=== PATIENT | male | born 1980 | race Caucasian/White ===

== ENCOUNTER 2022-07-07 08:28 | Outpatient (CLI) | payer OTHER, SELFPAY ==
--- NOTE | ~2022-07-07 | MR_ITS ---
EXAMINATION: MR knee LT w con DATE: 07/07/2022 10:33 INDICATION: Left knee pain TECHNIQUE: Magnetic resonance imaging (MRI) of the left knee was performed with intra-articular gadol inium contrast but without intravenous contrast. Details of the joint injection and contrast mixture have been dictated separately. Sequences included axial and sagittal PD-weighted FSE, sagittal and co el fluid sensitive FSE STIR, axial T2-weighted FS FSE, sagittal and coronal T1-weighted FSE and sa gittal T1-weighted FS FSE. COMPARISON: Radiographs dated 07/07/2022 FINDINGS: Medial compartment: Medial meniscus is normal. Tiny partial-thickness chondral ulceration versus fissure at the central w eightbearing medial femoral condyle seen on series 4, image 11. Lateral compartment: Lateral meniscus is normal. Articular cartilage is normal. Patellofemoral compartment: There is approximately 10 x 10 mm chondral ulceration at the central aspect of the trochlear groove w ith small central osteophyte at the site of the ulceration. Additional small partial thickness chondr al fissure without degenerative subchondral changes at the central aspect of the medial trochlea. Sha llow chondral fissuring also without degenerative subchondral changes at the central aspect of the pa tellar apical ridge and immediately adjacent medial side of the lateral facet. Ligaments and tendons: Anterior and posterior cruciate ligaments are normal. The medial collateral ligament and fibular chelsie ateral ligament complex are normal. There are small enthesophytes at the patellar insertions of the o therwise normal quadriceps and patellar tendons. The visualized medial and lateral hamstring tendons are normal. There is some thickening of the iliotibial band centered approximately 5 cm proximal to t he level of the tibiotalar joint line and tiny focus of susceptibility artifact along the anterior ma rgin of the iliotibial band likely related to a patient reported prior repair of the iliotibial band. Fluid: There is extension of small amount of contrast into a small Pierre's cyst. No loose osteochondral bodi es identified. Osseous/other: Normal marrow signal. No fracture or pathologic marrow replacing process. Prominent metallic magnetic field artifact such with a tiny metallic foreign body seen on the prior radiograph situated in the s ubcutaneous fat overlying the medial margin of the medial femoral condyle. IMPRESSION: 1. 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 2. Normal menisci and stabilizing ligaments of the knee. 3. Mild likely postoperative scarring along the iliotibial band. Reviewed, dictated and finalized at location A. NSION QUARRY SUPERVISOR IMPRESSION: 1. 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 2. Normal menisci and stabilizing ligaments of the knee. 3. Mild likely postoperative scarring along the iliotibial band.
--- NOTE | ~2022-07-07 | XR_ITS ---
EXAMINATION: XR fl inj knee LT for MR/CT DATE: 07/07/2022 10:26 INDICATION: Chronic left knee pain TECHNIQUE: A time-out was performed to verify the patient's name, date of , and procedure to b e performed. The procedure including the risks, benefits, and alternatives was discussed with the pat ient. Risks discussed included bleeding, allergic reaction and infection. The patient understood the risks and agreed to proceed. The skin overlying the lateral aspect of the left knee joint was preppe d and draped in usual sterile fashion. Anesthetic was administered with 1% lidocaine subcutaneously. A 22 G needle was advanced under fluoroscopic guidance into the joint. Injection of 1 mL of Omnipa que 240 confirmed intra-articular position of the needle. Subsequently, injectate consisting of 32 m L of 7:3:2 mixture of sterile saline:Omnipaque 240:1% lidocaine mixed 200:1 with 529 mg/mL Multihance gadolinium contrast was injected with intermittent fluoroscopy confirming intra-articular administra tion. The needle was removed and the entry site was cleaned and dressed. There were no immediate com plications. Fluoroscopy exposure time was 0.2 minutes. The total number of images was 6. FINDINGS: Real-time fluoroscopy demonstrates the needle in the left knee joint. Patient's pain prior to procedure:5/10. Patient's pain following the procedure: 0/10. IMPRESSION: 1. Successful fluoroscopic guided injection of a dilute gadolinium contrast mixture for supplement MR I arthrogram which will be dictated separately. Reviewed, dictated and finalized at location A. INFORMATION TECHNOLOGY IMPRESSION: 1. Successful fluoroscopic guided injection of a dilute gadolinium contrast mix ture for supplement MRI arthrogram which will be dictated separately.
--- NOTE | ~2022-07-07 | XR_ITS ---
XR knee LT 2V DATE: 07/07/2022 09:26 INDICATION: Left knee pain TECHNIQUE: 2 views COMPARISON: None FINDINGS: There is enthesopathy of the patella at the quadriceps and to a lesser extent patellar tend on insertion sites. There is minimal periarticular spurring of the patella consistent with patellofemoral osteoarthritis. Joint spaces appear well preserved. No radiopaque intra-articular loose body or chondrocalcinosis. No fracture or dislocation or joint effusion. No periosteal reaction or bone destruction. IMPRESSION: Mild patellofemoral osteoarthritis Patellar enthesopathy Reviewed, dictated and finalized at location L. O CONFERENCE SPECIALIST
== END 2022-07-07 08:29 | disposition home or self-care (01) ==
PROVIDERS: Visit Provider Orthopaedic Surgery
DX: M25.562 Pain in left knee (principal); G89.29 Other chronic pain; M94.262 Chondromalacia, left knee; M17.12 Unilateral primary osteoarthritis, left knee
CPT/HCPCS: 20610; 73560; 73722; 77002; A9577; Q9966